=== PATIENT | male | born 1980 | race African-American/Black ===

== ENCOUNTER 2020-03-18 08:38 | Inpatient (IN) ==
[2020-03-18] MEDS ORDERED: SODIUM CHLORIDE 0.9% 1,000 ML IV STA (09:03)
[2020-03-18] MEDS ORDERED: ONDANSETRON 4 MG/2 ML VIAL IV STA (09:04)
[2020-03-18 09:32] LABS: Basophils % 0.1 % (0.0-0.8); Hematocrit 45.2 VOL% (42.0-52.0); Hemoglobin 15.4 GM/DL (14.0-18.0); Immature Granulocytes % 0.5 %; Immature Granulocytes Absolute 0.04 #; Lymphocytes # 0.8 10*3/uL (1.4-4.0); Lymphocytes % 11.4 % (21.2-54.2); Mean Corpuscular HGB Conc 34.1 GM/DL (32-36); Mean Corpuscular Volume 91.1 FL (87-102); Mean Platelet Volume 10.1 FL (9.6-12.0); Monocytes % 6.2 % (1.7-12.7); Neutrophils % 81.8 % (38.7-73.9); Platelet Count 267 T/CUMM (130-400); Red Blood Count 4.96 MC/CUMM (3.8-5.5); Red Cell Distribution Width 12.3 % (9.3-17.3); White Blood Count 7.4 T/CUMM (4-12)
[2020-03-18 09:48] LABS: PT Patient Result 10.9 SECS (9.8-11.9)
[2020-03-18] MEDS ORDERED: DEXAMETHASONE 4 MG/1 ML VIAL IV STA (09:52)
[2020-03-18] MEDS ORDERED: CETIRIZINE 10 MG TABLET PO STA (09:52)
[2020-03-18] MEDS ORDERED: FAMOTIDINE 20 MG/2 ML VIAL IV STA (09:52)
[2020-03-18 09:56] LABS: Albumin 2.9 G/DL (3.4-5.0); Bilirubin,Total 0.5 MG/DL (0.2-1.0); Calcium 8.9 MG/DL (8.5-10.1); Ferritin 188.9 ng/ml (26-388); Osmolality,Calculated 268.1 MOS/KG (273-304); Total Protein 7.5 G/DL (6.4-8.3)
[2020-03-18 10:13] LABS: Band Neutrophils 4 % (0-10); Lymphocytes 16 % (20-55); Segmented Neutrophils 80 % (50-85); Total Cells Counted 100
[2020-03-18 10:15] LABS: Platelet Estimate Adequate
[2020-03-18] MEDS ORDERED: ENOXAPARIN 80 MG/0.8 ML SYRINGE SUBCUT STA (10:54)
[2020-03-18] MEDS ORDERED: ENOXAPARIN 100 MG/ML SYRINGE SUBCUT ONE (11:10)
[2020-03-18] MEDS ORDERED: ACETAMINOPHEN 325 MG TABLET PO PRN (14:00)
[2020-03-18] MEDS ORDERED: MORPHINE 4 MG/1 ML VIAL IV PRN (14:00)
[2020-03-18] MEDS ORDERED: PROMETHAZINE 25 MG/1 ML VIAL IM PRN (14:00)
[2020-03-18] MEDS ORDERED: ENOXAPARIN 40 MG/0.4 ML SYRINGE SUBCUT SCH (14:00)
[2020-03-18] MEDS ORDERED: guaiFENesin/DM ER 600-30 MG TABLET PO PRN (14:00)
[2020-03-18] MEDS ORDERED: ONDANSETRON 4 MG/2 ML VIAL IV PRN (14:00)
[2020-03-18] MEDS ORDERED: hydrALAZINE 20 MG/1 ML VIAL IV PRN (14:00)
[2020-03-18] MEDS ORDERED: SODIUM CHLORIDE 0.9% 1,000 ML IV SCH (14:00)
[2020-03-18] MEDS ORDERED: ALBUTEROL/IPRATROPIUM 3 ML NEB RESP TX PRN (14:00)
[2020-03-18] MEDS ORDERED: DEXTROSE 50% 25 GM/50 ML VIAL IV PRN (14:00)
[2020-03-18] MEDS ORDERED: GLUCAGON 1 MG VIAL IM PRN (14:00)
[2020-03-19] MEDS: ENOXAPARIN 100 MG/ML SYRINGE SUBCUT SCH ×2 (00:41→10:17)
[2020-03-19 06:38] LABS: Basophils % 0.1 % (0.0-0.8); Hematocrit 40.4 VOL% (42.0-52.0); Hemoglobin 13.6 GM/DL (14.0-18.0); Immature Granulocytes % 0.3 %; Immature Granulocytes Absolute 0.02 #; Lymphocytes # 1.3 10*3/uL (1.4-4.0); Lymphocytes % 19.6 % (21.2-54.2); Mean Corpuscular HGB Conc 33.7 GM/DL (32-36); Mean Corpuscular Volume 92.7 FL (87-102); Mean Platelet Volume 10.8 FL (9.6-12.0); Monocytes % 9.2 % (1.7-12.7); Neutrophils % 70.8 % (38.7-73.9); Platelet Count 285 T/CUMM (130-400); Red Blood Count 4.36 MC/CUMM (3.8-5.5); Red Cell Distribution Width 12.5 % (9.3-17.3); White Blood Count 6.8 T/CUMM (4-12)
[2020-03-19 07:01] LABS: Hypochromasia 1+; Microcytosis 1+; Platelet Estimate Adequate
[2020-03-19 07:08] LABS: Albumin 2.3 G/DL (3.4-5.0); Bilirubin,Total 0.5 MG/DL (0.2-1.0); Calcium 8.4 MG/DL (8.5-10.1); Osmolality,Calculated 276.4 MOS/KG (273-304); Thyroid Stimulating Hormone 0.962 uIU/ml (0.358-3.74); Total Protein 6.3 G/DL (6.4-8.3)
[2020-03-19] MEDS: PANTOPRAZOLE 40 MG TABLET PO SCH (08:45)
[2020-03-19] MEDS: RIVAROXABAN 15 MG TABLET PO SCH (17:04)
[2020-03-20 06:26] LABS: Basophils % 0.3 % (0.0-0.8); Eosinophils % 0.1 % (0.00-10.9); Hematocrit 45.5 VOL% (42.0-52.0); Hemoglobin 15.1 GM/DL (14.0-18.0); Immature Granulocytes % 0.4 %; Immature Granulocytes Absolute 0.03 #; Lymphocytes # 1.4 10*3/uL (1.4-4.0); Lymphocytes % 18.9 % (21.2-54.2); Mean Corpuscular HGB Conc 33.2 GM/DL (32-36); Mean Corpuscular Volume 93.2 FL (87-102); Mean Platelet Volume 10.7 FL (9.6-12.0); Monocytes % 8.2 % (1.7-12.7); Neutrophils % 72.1 % (38.7-73.9); Platelet Count 349 T/CUMM (130-400); Red Blood Count 4.88 MC/CUMM (3.8-5.5); Red Cell Distribution Width 12.6 % (9.3-17.3); White Blood Count 7.2 T/CUMM (4-12)
[2020-03-20 06:45] LABS: Albumin 2.7 G/DL (3.4-5.0); Bilirubin,Total 0.6 MG/DL (0.2-1.0); Calcium 8.7 MG/DL (8.5-10.1); Osmolality,Calculated 273.5 MOS/KG (273-304); Total Protein 7.5 G/DL (6.4-8.3)
[2020-03-20 07:04] LABS: Hypochromasia 1+; Lymphocytes 10 % (20-55); Microcytosis 1+; Platelet Estimate Adequate; Segmented Neutrophils 87 % (50-85); Total Cells Counted 100
[2020-03-20] MEDS: RIVAROXABAN 15 MG TABLET PO SCH (09:52)
[2020-03-20] MEDS: PANTOPRAZOLE 40 MG TABLET PO SCH (09:52)
[2020-03-20 11:25] VITALS: BP 131/54
[2020-03-20] MEDS ORDERED: APIXABAN 5 MG TABLET PO SCH (21:00)
== END 2020-03-20 15:35 | disposition home or self-care (01) | DRG 177 ==
LOC: N.ED 08:38 → N.EDINP 13:03 → SUATTDRO 13:03 → N.EDINP 14:15 → N.2E 14:50
PROVIDERS: ADMIT Internal Medicine Critical Care Medicine; ATTEND Internal Medicine